=== PATIENT | female | born 2000 | race Two or more races ===

== ENCOUNTER 2024-12-13 11:24 | Emergency (ER) | payer OTHER, SELFPAY ==
[2024-12-13 11:36] VITALS: BP 146/92; PULSE 94; RESP 16; TEMP 36.6; O2SAT 98; BMI 58.5
--- NOTE | 2024-12-13 11:40 | ED.GENADULT ---
HPI - General Adult General Chief complaint: Wound/Laceration Stated complaint: finger lac @ work Time Seen by Provider: 12/13/24 15:08 Source: patient and RN notes reviewed Mode of arrival: ambulatory Limitations: no limitations History of Present Illness ED Provider: Shirlene Moore PA-C HPI narrative: This is a 24-year-old female who presents emergency department with complaints of laceration to her finger. 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 She is unsure when her last tetanus shot was. She is right-hand dominant. Denies any numbness, tingling or weakness. No other complaints or concerns at this time. MD complaint: Finger laceration Onset (ago): hour(s) Location: upper extremity Radiation: non-radiation Severity: moderate Quality: aching Pain Consistency: constant Relieving factors: none Associated symptoms: denies other symptoms Treatments prior to arrival: none Related Data Previous Rx's ?Medication ?Instructions ?Recorded acetaminophen 500 mg tablet 500 mg PO Q6H PRN pain #30 tabs 12/13/24 (Tylenol Extra Strength) bacitracin 500 unit/gram topical 1 appl topical BID 10 days #14.2 12/13/24 ointment grams ibuprofen 600 mg tablet 600 mg PO Q6H PRN pain #30 tabs 12/13/24 Allergies Allergy/AdvReac Type Severity Reaction Status Date / Time Unable to Assess Allergy Verified 12/13/24 11:41 Review of Systems Review of Systems: Yes all other systems are reviewed and are negative [facility] Social History Social History Alcohol intake: current Alcohol type: beer, wine and hard liquor Smoked in Last 30 Days: No Use of substances other than those prescribed or required for medical reasons: No Advance Directives: No Advance Directives Information Provided: No Do you have a plan to hurt others: No Plan Patient : No Physical Exam ED Vital Signs: Vital Signs - 24 hr 12/13/24 11:36 12/13/24 17:34 Temperature 98 F 98 F Pulse Rate 94 94 Respiratory Rate 16 16 Blood Pressure 146/92 H 146/92 H Pulse Oximetry 98 98 Oxygen Delivery Method Room Air Room Air BMI result Body Mass Index 58.5 Const Other: General: Awake, alert, and oriented X3. No acute distress. HEENT: Normal inspection CVS: Normal heart rate and rhythm. Pulses normal. Respiratory: No respiratory distress Skin: Right 3rd finger, just distal to the PIP, dorsal aspect, there is a partial-thickness laceration noted, linear, with active bleeding noted. No foreign body appreciated. Distal sensation circulation intact. Capillary refill less than 2 seconds. Full ROM of the DIP and PIP. Extremities: See above Neuro: Oriented X 3. No motor deficit. No sensory deficit. Course Course Course Narrative: This is a rapid medical exam performed by Melida Guerra NP: Additional HPI, ROS, PE not included below will be deferred to primary provider. Patient is a 24-year-old right hand dominant female presenting with laceration to right 3rd finger. Cut accidentally with box press operator at work. Not UTD on Tdap. Full ROM of finger. Plan: LMX applied in triage, will require sutures, Tdap ordered Medications Administered Discontinued Medications Generic Name Dose Route Start Last Admin Trade Name Freq PRN Reason Stop Dose Admin Bacitracin 1 appl 12/13/24 17:06 12/13/24 17:10 Bacitracin Oint 0.9 Gm Packet TOPICAL 12/13/24 17:07 1 appl ONCE ONE Administration Protocol Diphtheria/Tetanus/Acell Pertussis 0.5 ml 12/13/24 11:42 12/13/24 15:10 Diphth,Pertus(Acell),Tet Adult 0.5 Ml Syringe IM 12/13/24 11:43 0.5 ml .ONCE ONE Administration Lidocaine HCl 1 appl 12/13/24 11:39 12/13/24 11:46 Lidocaine 4 % Cream Kit TOPICAL 12/13/24 11:40 1 appl ONCE ONE Administration Protocol Lidocaine HCl 5 ml 12/13/24 16:28 12/13/24 16:39 Lidocaine Hcl 1 % Mpf 5 Ml Vial SUBCUT 12/13/24 16:29 5 ml ONCE ONE Administration Procedures Laceration Laceration 1: Site: other (Right 3rd finger) Side (If applicable): right Size (cm): 2.5 Description: linear Depth: simple, single layer Local Anesthetic: lidocaine 1% Amount of anesthesia used (mL): 5 Pre-repair: wound explored, irrigated extensively and deep structures intact Skin layer closed with: nylon Size (cm): 5-0 Number of sutures: 6 Technique: simple, interrupted Medical Decision Making Medical Decision Making MDM Narrative: This is a 24-year-old female who presents emergency department for evaluation of laceration to right 3rd digit. This was an accidental work related injury. On arrival, blood pressure mildly elevated at 146/92, all other vital signs within normal limits. Patient with laceration noted to her right 3rd digit, active bleeding appreciated. While in triage, lidocaine cream was applied to wound. Wound was thoroughly cleansed and 6 sutures were placed. See procedure note for detail. Patient tolerated procedure well without any complications or concerns. Given wound care instructions. Tdap updated. Patient stable for discharge Differential Diagnosis Differential Diagnoses: The differential diagnosis associated with the presentation includes Laceration, contusion, puncture wound, cellulitis Discharge Plan Discharge Clinical Impression: Laceration Patient Disposition: Home, Self-Care Instructions: Laceration (ED) Additional Instructions: Bright you were seen in the emergency department after accidentally cutting your finger on a box press operator at work. Please keep wound clean and dry. Keep dressing that we used on until tomorrow unless the dressing gets wet then removed. You may use [id number] anti biotic ointment. You have [address], please have these removed in 10-14 days. You may return here or follow-up with your primary care physician to have these removed. Watch for any signs of infection including but not limited to increased redness, swelling, pain. If any of these occur, please seek emergent care. You may take ibuprofen and or Tylenol as needed for pain or symptoms. Prescriptions: New acetaminophen [Tylenol Extra Strength] 500 mg tablet 500 mg PO Q6H PRN (Reason: pain) Qty: 30 0RF ibuprofen 600 mg tablet 600 mg PO Q6H PRN (Reason: pain) Qty: 30 0RF bacitracin 500 unit/gram ointment 1 appl topical BID 10 Days Qty: 14.2 0RF Stand Alone Forms: Work/School Release Interventions: ED Discharge Assessment Last Done: 12/13/24 17:34 Discharge Date/Time: 12/13/24 17:34 Print Language: Swiss
[2024-12-13] MEDS: Lidocaine 4 % Cream KIT 1 APPL TOPICAL (11:46)
[2024-12-13] MEDS: Diphth,Pertus(ACell),Tet Adult 0.5 ML SYRINGE IM (15:10)
[2024-12-13] MEDS: Lidocaine HCl 1 % MPF 5 ML VIAL SUBCUT (16:39)
[2024-12-13] MEDS: Bacitracin Oint 0.9 GM PACKET 1 APPL TOPICAL (17:10)
[2024-12-13 17:34] VITALS: BP 146/92; PULSE 94; RESP 16; TEMP 36.6; O2SAT 98
== END 2024-12-13 17:34 | disposition home or self-care (01) ==
PROVIDERS: Emergency Provider Emergency Medicine
DX: S61.212A Laceration without foreign body of right middle finger without damage to nail, initial encounter (principal); M79.641 Pain in right hand; W26.0XXA Contact with knife, initial encounter; Y93.9 Activity, unspecified; Y92.9 Unspecified place or not applicable; Y99.0 Civilian activity done for income or pay; Z23 Encounter for immunization
CPT/HCPCS: 12041; 90471; 90715; 99284; J2003

== ENCOUNTER 2024-12-26 15:54 | Emergency (ER) | payer OTHER, SELFPAY ==
[2024-12-26 16:06] VITALS: BP 128/78; PULSE 82; RESP 17; TEMP 36.6; O2SAT 98; BMI 56.7
--- NOTE | 2024-12-26 16:13 | ED.WOUNDLAC ---
HPI - Wound/Laceration General Chief Complaint: Wound/Laceration Stated Complaint: suture removal Time Seen by Provider: 12/26/24 16:06 Source: patient Mode of arrival: ambulatory Limitations: no limitations History of Present Illness ED Provider: NITESH AVILA PA-C HPI narrative: 24-year-old female presents to the ED today requesting suture removal. 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 She was right-hand dominant. Her tetanus was updated at that visit. She had a total of 6 sutures placed. She was advised to return to the ED in 10-14 days for suture removal. She states the area has been healing well. No surrounding redness, increased pain or drainage from the area. No issues moving the 3rd digit. No fever, chills. No complaints. Related Data Previous Rx's ?Medication ?Instructions ?Recorded acetaminophen 500 mg tablet 500 mg PO Q6H PRN pain #30 tabs 12/13/24 (Tylenol Extra Strength) bacitracin 500 unit/gram topical 1 appl topical BID 10 days #14.2 12/13/24 ointment grams ibuprofen 600 mg tablet 600 mg PO Q6H PRN pain #30 tabs 12/13/24 Allergies Allergy/AdvReac Type Severity Reaction Status Date / Time No Known Allergies Allergy Verified 12/26/24 16:07 Review of Systems Review of Systems: Yes all other systems are reviewed and are negative [facility] Past Medical History Attestation statement: The following information was validated with the patient. Source: old records reviewed and nursing notes reviewed Social History Social History Alcohol intake: current Alcohol type: beer, wine and hard liquor Advance Directives: No Advance Directives Information Provided: No Do you have a plan to hurt others: No Plan Physical Exam Vital Signs: Vital Signs: Last Vital Signs Temp 98 F 12/26/24 16:06 Pulse 82 12/26/24 16:06 Resp 17 12/26/24 16:06 BP 128/78 12/26/24 16:06 Pulse Ox 98 12/26/24 16:06 O2 Del Method Room Air 12/26/24 16:06 BMI result Body Mass Index 56.7 vital signs stable General: Well appearing, in no acute distress. Cardiac: Chest wall symmetric Lungs: Normal respiratory effort without accessory muscle use Ext: + well-healing linear laceration noted to dorsal aspect of right 3rd finger, just distal to the PIP. Six sut[address]. No dehiscence. No surrounding erythema. No drainage. Full ROM intact to right 3rd digit Neuro: AOx3. Normal speech. Psych: Appropriate mood and affect. Responds appropriately to questions. Course Course Course Narrative: Six sutures removed from dorsal aspect of right 3rd digit. No dehiscence noted. No concern for infection. Patient tolerated well. Dermabond applied for reinforcement. Patient has remained stable throughout ED visit today. Discussed worrisome signs and symptoms and when to return to the ED. All questions answered at this time. Patient is agreeable with disposition and stable for discharge. Medical Decision Making Medical Decision Making MDM Narrative: 24-year-old female presents to the ED today requesting suture removal. Vital signs stable. Afebrile. She is nontoxic appearing in no acute distress. on exam, well-healing linear laceration noted to dorsal aspect of right 3rd finger, just distal to the PIP. [address] No dehiscence. No surrounding erythema. No drainage. Full ROM intact to right 3rd digit. Concern for well-healing laceration. No concern for cellulitis, dehiscence, tenosynovitis, abscess Plan for suture removal and disposition. Differential Diagnosis Differential Diagnoses: The differential diagnosis associated with the presentation includes as above. Admission/Observation Not indicated. External Record Review External record reviewed: Inpatient record Social Determinants Patient?s care significantly limited by Social Determinants of Health including: Other Social Determinant of Health Critical Care Time Critical Care Time Critical Care Time: No Discharge Plan Discharge Clinical Impression: Encounter for removal of sutures Patient Disposition: Home, Self-Care Instructions: Stitches Removal (ED) Additional Instructions: You have been evaluated in the Emergency Department today for suture removal.? Your sutures were removed and your wound is healing well.? You can wash the area freely now. Keep your wound out of the sunlight for six months to reduce the appearance of scarring. You should cover your scar or use high SPF sunscreen protection. Please follow up with your primary care provider at your next scheduled appointment. Return to the ER immediately signs of infection to your wounds such as worsening pain, worsening redness/swelling, discharge/pus from your wounds, or for any other concerning symptoms. Prescriptions: No Action acetaminophen [Tylenol Extra Strength] 500 mg tablet 500 mg PO Q6H PRN (Reason: pain) Qty: 30 0RF ibuprofen 600 mg tablet 600 mg PO Q6H PRN (Reason: pain) Qty: 30 0RF bacitracin 500 unit/gram ointment 1 appl topical BID 10 Days Qty: 14.2 0RF Referrals: Physician,None [Primary Care Provider] - Print Language: Kyrgyz
== END 2024-12-26 16:13 | disposition home or self-care (01) ==
PROVIDERS: Emergency Provider Emergency Medicine
DX: Z04.2 Encounter for examination and observation following work accident (principal); Z48.02 Encounter for removal of sutures; S61.212D Laceration without foreign body of right middle finger without damage to nail, subsequent encounter; W27.8XXD Contact with other nonpowered hand tool, subsequent encounter
CPT/HCPCS: 99281